=== PATIENT | female | born 1995 | race Two or more races ===

== ENCOUNTER 2018-06-06 10:23 | Emergency (ER) | payer SELFPAY ==
[~2018-06-06] VITALS: Ht 160 cm; Wt 85.7 kg
[2018-06-06] MEDS ORDERED: HYDROcodone/APAP 5/325MG 1 TAB TABLET PO ONE (10:45)
[2018-06-06] MEDS ORDERED: LIDOCAINE WITH 8.4% SOD BICARB 3 ML DISP.SYRIN. INJ ONE (10:45)
[2018-06-06] MEDS ORDERED: LIDOCAINE/EPI/TETRACAINE TOPICAL GEL 3 ML. TP ONE (10:45)
[2018-06-06] MEDS ORDERED: CEPH-264 PO (10:49)
--- NOTE | 2018-06-06 10:49 | PHYS DOC ---
Adult General Chief Complaint Chief Complaint: ABSCESS HPI HPI Patient is a 23 year old female who presents with right labia abscess for the last week. Patient states it started out as small as a pencil eraser. Patient states she thinks she's been running a low-grade fever. Patient last took ibuprofen yesterday at 11:00. She is afebrile today. Patient rates her pain a 9 out of 10. Review of Systems Review of Systems Constitutional: fever or chills [] Eyes: Denies change in visual acuity, redness, or eye pain [] HENT: Denies nasal congestion or sore throat [] Respiratory: Denies cough or shortness of breath [] Cardiovascular: No additional information not addressed in HPI [] GI: Denies abdominal pain, nausea, vomiting, bloody stools or diarrhea [] : Denies dysuria or hematuria [] Musculoskeletal: Denies back pain or joint pain [] Integument: Denies rash or skin lesions. abscess to right labia. [] Neurologic: Denies headache, focal weakness or sensory changes [] All other systems were reviewed and found to be within normal limits, except as documented in this note. Current Medications Current Medications Current Medications Medications (Trade) Dose Ordered Sig/Tiarra Start Time Stop Time Status Last Admin Dose Admin Acetaminophen/ Hydrocodone Bitart (Lortab 5/325) 1 tab 1X ONCE 06/06/18 10:45 06/06/18 10:49 DC 06/06/18 10:54 1 TAB Lidocaine/ Epinephrine (Let Topical) 3 ml 1X ONCE 06/06/18 10:45 06/06/18 10:49 DC 06/06/18 10:54 3 ML Lidocaine/Sodium Bicarbonate (Buffered Lidocaine 1%) 3 ml 1X ONCE 06/06/18 10:45 06/06/18 10:49 DC 06/06/18 11:04 3 ML Allergies Allergies Allergies Coded Allergies Type Severity Reaction Last Updated Verified No Known Drug Allergies 06/06/18 No Physical Exam Physical Exam Constitutional: Well developed, well nourished, no acute distress, non-toxic appearance. [] HENT: Normocephalic, atraumatic, bilateral external ears normal, oropharynx moist, no oral exudates, nose normal. [] Eyes: PERRLA, EOMI, conjunctiva normal, no discharge. [] Neck: Normal range of motion, no tenderness, supple, no stridor. [] Cardiovascular:Heart rate regular rhythm, no murmur [] Lungs & Thorax: Bilateral breath sounds clear to auscultation [] Abdomen: Bowel sounds normal, soft, no tenderness, no masses, no pulsatile masses. [] Skin: Warm, dry, Right labia erythema, no rash. Right labia abscess- oleg egged sized.[] Back: No tenderness, no CVA tenderness. [] Extremities: No tenderness, no cyanosis, no clubbing, ROM intact, no edema. [] Neurologic: Alert and oriented X 3, normal motor function, normal sensory function, no focal deficits noted. [] Psychologic: Affect normal, judgement normal, mood normal. [] Current Patient Data Vital Signs Vital Signs Date Time Temp Pulse Resp B/P (MAP) Pulse Ox O2 Delivery O2 Flow Rate FiO2 06/06/18 10:38 99.0 109 16 146/91 (109) 98 Room Air 99.0 EKG EKG [] Radiology/Procedures Radiology/Procedures [] Course & Med Decision Making Course & Med Decision Making Patient is a 23 year old female who presents with right lower labia abscess for the last week. Patient states it started out as small as a pencil eraser. Patient states she thinks she's been running a low-grade fever. Patient last took ibuprofen yesterday at 11:00. She is afebrile today. Patient rates her pain a 9 out of 10. Red raised oleg egg-sized and non-draining and red on the right lower labia. The right labia associated redness and swelling. The skin is not indurated. The abscess itself is soft. Abscess Incision and Drainage with irrigation by me: Location: right lower outter Anesthesia: Local 1% Lidocaine Technique: Irrigated. Disrupted loculations w/ instrumentation Packing: Yes Complications: Neurovascularly intact post procedure 48 hour wound check. Scar minimization instructions given. ED Ultrasound: Abscess localized by me using concurrent ultrasound guidance and assessment of the anatomy. Real time image archived in the medical record confirms anatomy. Dragrayne Disclaimer Edaurdo Disclaimer This electronic medical record was generated, in whole or in part, using a voice recognition dictation system. Departure Departure Impression: Primary Impression: Abscess Disposition: 01 HOME, SELF-CARE Condition: STABLE Patient Instructions: Abscess, Abscess, Care After Additional Instructions: Follow up with primary care. Return to ED in 48 hours for recheck of wound. Take medications as prescribed. Scripts Hydrocodone/Apap 5-325 (NORCO 5-325 TABLET) 1 Each Tablet 1 TAB PO PRN Q6HRS PRN for PAIN, #10 TAB 0 Refills Prov: JAKOB SPIVEY APRN 06/06/18 Cephalexin (KEFLEX) 500 Mg Capsule 500 MG PO QID for 10 Days, #40 CAP Prov: JAKOB SPVIEY APRN 06/06/18 JAKOB SPIVEY APRN Jun 06, 2018 10:49
[2018-06-06] MEDS ORDERED: HYDR-3164 PO (10:50)
[2018-06-06] MEDS ORDERED: 0.9 % SOD CHL for STERILE FIELD 10 ML DISP.SYRIN. ONE (11:09)
[2018-06-06 12:09] VITALS: BP 117/69
== END 2018-06-06 12:10 | disposition home or self-care (01) ==
LOC: ER 10:23
DX: N76.4 Abscess of vulva (principal)
CPT/HCPCS: 10060; 99283

== ENCOUNTER 2018-06-09 13:56 | Emergency (ER) | payer SELFPAY ==
[~2018-06-09] VITALS: Ht 154.9 cm; Wt 85.7 kg
[~2018-06-09 13:56] MED LIST: CEPH-264 PO; HYDR-3164 PO
[2018-06-09 14:15] VITALS: BP 131/77
--- NOTE | 2018-06-09 15:11 | PHYS DOC ---
Past Medical History Past Medical History: Diabetes-Type II Past Surgical History: Alcohol Use: Occasionally Drug Use: None Adult General Chief Complaint Chief Complaint: WOUND CHECK HPI HPI 23-year-old female presents today for wound recheck. She had a Bartholin's cyst drained yesterday on her left labia. She states the packing came out last night. It has been spontaneously draining. She states the pain is still present but better. She is taking her antibiotics as directed Review of Systems Review of Systems Constitutional: Denies fever or chills [] Eyes: Denies change in visual acuity, redness, or eye pain [] HENT: Denies nasal congestion or sore throat [] Respiratory: Denies cough or shortness of breath [] Cardiovascular: No additional information not addressed in HPI [] GI: Denies abdominal pain, nausea, vomiting, bloody stools or diarrhea [] : Per history of present illness[] Musculoskeletal: Denies back pain or joint pain [] Integument: Denies rash or skin lesions [] Neurologic: Denies headache, focal weakness or sensory changes [] Endocrine: Denies polyuria or polydipsia [] All other systems were reviewed and found to be within normal limits, except as documented in this note. Allergies Allergies Allergies Coded Allergies Type Severity Reaction Last Updated Verified No Known Drug Allergies 06/06/18 No Physical Exam Physical Exam Constitutional: Well developed, well nourished, no acute distress, non-toxic appearance. [] HENT: Normocephalic, atraumatic, bilateral external ears normal, oropharynx moist, no oral exudates, nose normal. [] Eyes: PERRLA, EOMI, conjunctiva normal, no discharge. [] Neck: Normal range of motion, no tenderness, supple, no stridor. [] Cardiovascular:Heart rate regular rhythm, no murmur [] Lungs & Thorax: Bilateral breath sounds clear to auscultation [] Abdomen: Bowel sounds normal, soft, no tenderness, no masses, no pulsatile masses. [] Skin: Left labia appears to have a open wound that is draining what appears to be serosanguineous fluid there is no induration.. [] Back: No tenderness, no CVA tenderness. [] Extremities: No tenderness, no cyanosis, no clubbing, ROM intact, no edema. [] Neurologic: Alert and oriented X 3, normal motor function, normal sensory function, no focal deficits noted. [] Psychologic: Affect normal, judgement normal, mood normal. [] Current Patient Data Vital Signs Vital Signs Date Time Temp Pulse Resp B/P (MAP) Pulse Ox O2 Delivery O2 Flow Rate FiO2 06/09/18 14:15 98.2 76 18 131/77 (95) 98 Room Air 98.2 EKG EKG [] Radiology/Procedures Radiology/Procedures [] Course & Med Decision Making Course & Med Decision Making Pertinent Labs and Imaging studies reviewed. (See chart for details) [] Dragon Disclaimer Dragon Disclaimer This electronic medical record was generated, in whole or in part, using a voice recognition dictation system. Departure Departure Impression: Primary Impression: Encounter for recheck of abscess following incision and drainage Disposition: 01 HOME, SELF-CARE Condition: STABLE Referrals: UNKNOWN PCP NAME (PCP) Patient Instructions: Bartholin's Cyst and Abscess-Brief AZALIA DAWSON DO Jun 09, 2018 15:11
== END 2018-06-09 15:21 | disposition home or self-care (01) ==
LOC: ER 13:56
DX: N75.1 Abscess of Bartholin's gland (principal); E11.65 Type 2 diabetes mellitus with hyperglycemia
CPT/HCPCS: 99281